=== PATIENT | male | born 1960 | race Caucasian/White ===

== ENCOUNTER 2019-04-10 22:37 | Emergency (ER) | payer OTHER ==
[2019-04-10 23:04] VITALS: TEMP 97.8; BMI 39.9
--- NOTE | 2019-04-11 00:44 | PDOC ---
History of Present Illness - General Chief Complaint: Pain, Acute Stated Complaint: LT. ABD PAIN/urinary symptoms Time Seen by Provider: 04/11/19 00:11 History Source: Patient Exam Limitations: No Limitations - History of Present Illness Initial Comments: 04/11/19 00:20 58 yo male pmh renal stone presents to the ED after sudden onset left flank pain. Pt states the pain started after dinner at 7 45pm, described as sharp, constant and non radiating. Pt took tylenol and wifes oxycodone with some improvement in pain. Pt admits to urinary hesitancy denies burning, blood or increased frequency with urination, F/C/N/V, abdominal pain, CP, SOB, back pain. Past History - Past Medical History Allergies/Adverse Reactions: Allergies Allergy/AdvReac Type Severity Reaction Status Date / Time Penicillins Allergy Verified 04/10/19 23:04 Home Medications: Ambulatory Orders Metoprolol Succinate [Toprol Xl] 50 mg PO DAILY 04/11/19 metFORMIN HCL [Metformin HCl] 500 mg PO BID 04/11/19 COPD: No CHF: No Diabetes: Yes HTN: Yes Kidney Stones: Yes - Suicide/Smoking/Psychosocial Hx Smoking History: Unknown if ever smoked Have you smoked in the past 12 months: No Information on smoking cessation initiated: No Hx Alcohol Use: No Drug/Substance Use Hx: No *Physical Exam - Vital Signs Last Vital Signs Temp Pulse Resp BP Pulse Ox 97.8 F 79 16 186/106 H 100 04/10/19 23:01 04/10/19 23:01 04/10/19 23:01 04/10/19 23:01 04/10/19 23:01 ED Treatment Course - LABORATORY CBC & Chemistry Diagram: 04/11/19 01:14 04/11/19 01:14 Medical Decision Making - Medical Decision Making 04/11/19 03:[address] shows 1mm non obstructing stone in the UVJ Pt afebrile, no UTI *DC/Admit/Observation/Transfer Diagnosis at time of Disposition: Renal stone - Discharge Dispostion Disposition: HOME Condition at time of disposition: Stable Decision to Admit order: No - Referrals Referrals: Gideon Hart MD [Primary Care Provider] - Peng Reynolds MD [Staff Physician] - - Patient Instructions Printed Discharge Instructions: DI for Kidney Stones Additional Instructions: Please see your primary doctor and make an appointment with the Urologist referred to you within the next 48 hours. Make sure to discuss your elevated blood pressure readings, hiatal hernia and diverticulosis findings on CAT scan with your Primary Doctor. Increase your water intake. Take over the counter Tylenol or Motrin for pain as needed and stated on the packaging. Return to the ER for new or concerning symptoms including but not limited to: high fevers, inability to urinate, darren blood in your urine, excessive pain not relieved by medications. Thank you - Post Discharge Activity
[2019-04-11 00:58] LABS: EPI CELLS 0.6 /HPF (0-5/HPF); URINE APPEARANCE CLEAR; URINE BACTERIA 1.9 /hpf (NEGATIVE); URINE BILIRUBIN NEGATIVE (NEGATIVE); URINE CASTS 2 /lpf (0-8); URINE COLOR YELLOW; URINE GLUCOSE (UA) 1+ (NEGATIVE); URINE KETONE TRACE (NEGATIVE); URINE LEUK ESTERASE NEGATIVE (NEGATIVE); URINE NITRITE NEGATIVE (NEGATIVE); URINE PROTEIN TRACE (NEGATIVE); URINE RBC 102 /hpf (0-4); URINE UROBILINOGEN 0.2 mg/dL (0.2-1.0); URINE WBC 1 /hpf (0-5)
[2019-04-11] MEDS ORDERED: METOPROLOL TARTRATE 50 MG TABLET (FP) PO ONE (01:12)
[2019-04-11] MEDS ORDERED: metFORMIN HCL 500 MG TABLET (FP) PO ONE (01:12)
--- NOTE | 2019-04-11 01:14 | PDOC ---
Documentation entered by Salomon Pedro SCRIBE, acting as scribe for Nandini Garvin MD. Nandini Garvin MD: This documentation has been prepared by the Willis guy Xhesika, SCRIBE, under my direction and personally reviewed by me in its entirety. I confirm that the documentation accurately reflects all work, treatment, procedures, and medical decision making performed by me. Attending Attestation - Resident Resident Name: [email or web address] - ED Attending Attestation I have performed the following: I have examined & evaluated the patient, The case was reviewed & discussed with the resident, I agree w/resident's findings & plan, Exceptions are as noted - HPI HPI: 04/11/19 00:53 this 58 yo male developed severe left flank pain tonight at 7:45 and has had decreased urination 04/11/19 01:01 The patient is a 58 year old male with a significant past medical history of renal colic, diabetes, and HTN who presents to our ED with onset L flank pain at 7:45pm. The patient describes his abdominal pain as sharp, constant and non radiating. The patient states he took tylenol and oxycodone withminimal relief. The patient states he has been endorsing urinary hesitancy, however, denies burning, blood or increased frequency with urination. The patient denies chest pain, shortness of breath or dizziness. The patient denies fever, chills, nausea, diarrhea or constipation. The patient denies dysuria, frequency or hematuria. Allergy: Penicillins Surgical History: None reported Social History: None reported PCP: Gideon Gordon - Physicial Exam PE: 04/11/19 00:56 obese 58 yo male with left flank pain head ncat neck supple lungs cta b/l cvs [id number] abd nontender,no rebound extremities no edema left flank pain skin warm and dry neuro axox3,ambulatory psych appropriate 04/11/19 01:05 - Medical Decision Making 04/11/19 01:05 this pt has h/o NIDDM and hypertension his PCP is Dr Hamlet Hart diff diag includes renal calculi,pyelo,aortic dissection,muscle strain plan labs,ct scan,UA,will repeat BP 04/11/19 01:13 pt is supposed to take metoprolol 50 mg and metformin 500mg bid daily
[2019-04-11] MEDS ORDERED: SODIUM CHLORIDE 1,000 ML IV STA (01:20)
[2019-04-11] MEDS ORDERED: METOPROLOL TARTRATE 50 MG TABLET (FP) ONE (01:22)
[2019-04-11 01:25] LABS: BASO % 0.6 % (0-2.0); EOS % 0.3 % (0-4.5); HEMATOCRIT 45.7 % (35.4-49); LYMPH % 22.7 % (8-40); MCH 29.5 pg (25.7-33.7); MCHC 32.8 g/dl (32.0-35.9); MEAN CELL VOLUME 89.9 fl (80-96); MEAN PLT VOLUME 8.3 fl (7.5-11.1); MONO % 3.7 % (3.8-10.2); NEUT % 72.7 % (42.8-82.8); PLATELET COUNT 232 K/MM3 (134-434); RBC 5.08 M/mm3 (4.00-5.60); RDW 14.1 % (11.9-15.9)
[2019-04-11 01:51] LABS: ALBUMIN 3.6 g/dl (3.4-5.0); BILIRUBIN,TOTAL 0.5 mg/dL (0.2-1); CALCIUM 9.4 mg/dL (8.5-10.1); CREATININE 0.9 mg/dL (0.55-1.3); POTASSIUM 4.2 mmol/L (3.5-5.1); TOT PROT 7.5 g/dl (6.4-8.2)
[2019-04-11] MEDS ORDERED: metFORMIN HCL 500 MG TABLET (FP) ONE (03:20)
[2019-04-11 05:33] VITALS: BP 186/92; PULSE 80
== END 2019-04-11 04:00 | disposition home or self-care (01) ==
LOC: JER 22:37
PROC: 3E0337Z Introduction of Electrolytic and Water Balance Substance into Peripheral Vein, Percutaneous Approach (ICD-10-PCS; principal; 2019-04-10)
DX: N20.0 Calculus of kidney (principal); I10 Essential (primary) hypertension; E11.9 Type 2 diabetes mellitus without complications; Z79.84 Long term (current) use of oral hypoglycemic drugs
CPT/HCPCS: 36415; 74176-TC; 80053; 81003; 83036; 83690; 85025; 87086; 99281-25; J7030

== ENCOUNTER 2021-01-10 04:39 | Day surgery (SDC) | payer OTHER ==
[2021-01-07 19:31] VITALS: BMI 38.7
[~2021-01-10 04:39] MED LIST: BUPIVACAINE HCL/PF 0.5% (5MG/ML) 10 ML VIAL IJ ONE
[2021-01-10] MEDS ORDERED: LIDOCAINE 1%/EPI 1:100000 (50 ML MULTI DOSE VIAL) ONE (11:07)
[2021-01-10] MEDS ORDERED: MIDAZOLAM HCL 2 MG/2 ML SINGLE DOSE VIAL ONE ×2 (11:28)
[2021-01-10] MEDS ORDERED: PROPOFOL 20 ML ONE (11:28)
[2021-01-10] MEDS ORDERED: LIDOCAINE 1%/EPI 1:100000 (50 ML MULTI DOSE VIAL) NR ONE (11:59)
[2021-01-10] MEDS ORDERED: BUPIVACAINE HCL/PF 0.5% (5MG/ML) 10 ML VIAL IJ ONE (11:59)
[2021-01-10 13:28] VITALS: BP 119/66; PULSE 96; TEMP 98.4
== END 2021-01-10 13:44 | disposition home or self-care (01) ==
LOC: JASU-SURG 04:39
PROVIDERS: ATTEND Surgery
PROC: 0KB30ZZ Excision of Left Neck Muscle, Open Approach (ICD-10-PCS; principal; 2021-01-10 11:00)
DX: D21.0 Benign neoplasm of connective and other soft tissue of head, face and neck (principal); I10 Essential (primary) hypertension; E11.9 Type 2 diabetes mellitus without complications; Z79.84 Long term (current) use of oral hypoglycemic drugs
CPT/HCPCS: 82962; 88305-TC

== ENCOUNTER 2024-09-18 19:25 | Emergency (ER) | payer OTHER ==
[2024-09-18 19:43] VITALS: BP 142/85; PULSE 76; RESP 20; TEMP 98.3; BMI 38.5
== END 2024-09-18 21:34 | disposition home or self-care (01) ==
LOC: JERFT 19:25
DX: S20.211A Contusion of right front wall of thorax, initial encounter (principal); W01.0XXA Fall on same level from slipping, tripping and stumbling without subsequent striking against object, initial encounter
CPT/HCPCS: 71101-TC-RT-FY; 99283-25